=== PATIENT | male | born 1925 | race Caucasian/White ===

== ENCOUNTER 2016-11-27 07:36 | Day surgery (SDC) | payer MEDICARE, OTHER ==
[2016-11-27] VITALS (11 sets, daily range): BP systolic 97–182; BP diastolic 37–65; PULSE 59–69; RESP 13–18; O2SAT 94–98
[~2016-11-27] VITALS: Ht 182.9 cm; Wt 112.6 kg
[~2016-11-27 07:36] MED LIST: ALLO300T2 PO; ASCO-294 PO; BUPR100T15 PO; CITA20TA11 PO; CYAN500 PO; DOCU250C2 PO; Dexamethasone 4 mg/mL Inj IVPUSH PRN; EPHEDrine Sulfate 50 mg/mL Inj IVPUSH PRN; FRSM80T PO; GABA-502 PO; HYDROmorphone 1 mg/mL Inj IVPUSH PRN; LOVA40TA PO; Labetalol 5 mg/mL 4 mL Inj IV PRN; Lactated Ringer's 1,000 ML IV SCH; Lactated Ringer's 500 ML IV PRN; MetoCLOpramide 5 mg/mL 2 mL Inj IVPUSH PRN; OXYC5TAB72 PO; Ondansetron 2 mg/mL 2 mL Inj IVPUSH PRN; PANT40TA3 PO; POTA10TA12 PO; Phenylephrine 10,000 mCg/mL Inj IVPUSH PRN; TAMS0.4C98 PO; fentaNYL-PF 50 mCg/mL 2 mL Inj IVPUSH PRN
[2016-11-27] MEDS ORDERED: Ketamine 10 mg/mL 20 mL Inj ONE (07:37)
[2016-11-27] MEDS ORDERED: Propofol 10,000 mCg/mL 20 mL Inj ONE (07:37)
[2016-11-27] MEDS ORDERED: CeFAZolin Inj 2 gm / 50mL D5W IV ONE (08:15)
[2016-11-27] MEDS: Lactated Ringer's 1,000 ML IV SCH ×3 (08:19→09:44)
[2016-11-27] MEDS ORDERED: Belladonna Alk-Opium 60 mg Rectal Suppository RECTAL ONE (09:38)
[2016-11-27] MEDS: CeFAZolin 2 Gm/50 mL D5W IV Premix IV ONE ×3 (09:42→09:57)
--- NOTE | 2016-11-27 10:04 | PCM.ANEP1 ---
Post Anesthesia Phase 1 PACU Phase 1 Assessment Date of Service: Nov 27, 2016 Vital Signs Vital Signs Date Time Temp Pulse Resp B/P Pulse Ox O2 Delivery O2 Flow Rate FiO2 11/27/16 08:14 36.2 63 16 182/65 97 Room Air Anesthetic Administered: GA Level of Alertness: Awake, talking Pain: No Nausea or Vomiting: No Oxygen Delivery: Room Air Lungs: Clear to Auscultation, Normal Air Movement Jimbo Redman MD Nov 27, 2016 10:04
--- NOTE | 2016-11-27 10:04 | PCM.HPANE ---
Patient Data Date of Service: Nov 27, 2016 Surgeon Admitting Provider: Attending Provider:Nayeli Courtney MD Primary Care Physician:Marsha Taylor MD Other Provider:Liborio Hines Anesthesia Reason for Visit Bladder Tumor Ht/WT & BMI Height (Feet): 6 Height (Inches): 0.00 Weight (Kilograms): 112.600 Body Mass Index 33.00 Allergies Coded Allergies: Sulfa (Sulfonamide Antibiotics) (Verified Allergy, Unknown, Rash, 06/25/15) Past Anesthesia History Anesthesia History: Denies:: Abnormal Airway, Anesthesia Reactions, Difficult Intubation, Fam Anesthesia Reaction, Fam Malignant Hypertherm, Malignant Hyperthermia Diabetes History Hx Diabetes?: No Current Bedside Blood Glucose: 124 MRSA MRSA: Yes Medications Hypertension Medication: Yes Home Meds Incl Beta Ese: No Reported Medications Ascorbate Calcium (Vitamin C)500 Mg Fglrsn614 Mg PO DAILY 11/25/16 Cyanocobalamin (Vitamin B12)500 Mcg Tablet1,000 Mcg PO DAILY 11/25/16 Tamsulosin (Flomax)0.4 Mg Capsule0.8 Mg PO DAILY Ref 0 11/25/16 Potassium Chloride ER 10 Meq Hfmtmt99 Meq PO DAILY Ref 0 TAKE WITH FOOD 11/25/[address] 40 Mg Tablet.dr40 Mg PO DAILY Ref 0 11/25/16 oxyCODONE 5 Mg Tablet5 Mg PO Q6H PRN For Pain Ref 0 11/25/16 Lovastatin 40 Mg Nypkjl43 Mg PO HS #30 TABLET Ref 0 11/25/16 Gabapentin 300 Mg Mfojrya669 Mg PO TID Ref 0 11/25/16 Furosemide 80 Mg Tab80 Mg PO DAILY 30 Days Ref 0 11/25/16 Docusate Sodium 250 Mg Ilziihz136 Mg PO DAILY PRN For Constipation Ref 0 11/25/16 Citalopram 20 Mg Ovyyny38 Mg PO DAILY Ref 0 11/25/16 Bupropion 100 Mg Txztkn757 Mg PO TID Ref 0 11/25/16 Allopurinol 300 Mg Jfguex821 Mg PO DAILY Ref 0 11/25/16 Discontinued Reported Medications Cholecalciferol (Vitamin D3) (Vitamin D3)1,000 Unit Tab.chew1,000 Unit PO DAILY 06/20/15 Ascorbic Acid (Vitamin C)500 Mg/5 Ml Vczgt002 Mg PO DAILY 06/20/15 Cyanocobalamin (Vitamin B12)500 Mcg Tablet1,000 Mcg PO DAILY 06/20/15 Tramadol 50 Mg Ifnfhh56 Mg PO Q6H PRN For Pain Ref 0 06/20/15 Tamsulosin (Flomax)0.4 Mg Capsule0.4 Mg PO DAILY Ref 0 06/20/15 Potassium Chloride 10 Meq Capsule.er10 Meq PO DAILY 30 Days Ref 0 TAKE WITH FOOD 06/20/[address] 40 Mg Tablet.dr40 Mg PO DAILY Ref 0 06/20/15 oxyCODONE 5 Mg Capsule5 Mg PO Q4H PRN For Pain Ref 0 06/20/15 Lovastatin 40 Mg Prwiak81 Mg PO HS #30 TABLET Ref 0 06/20/15 Gabapentin 300 Mg Zrtsbcf908 Mg PO TID Ref 0 06/20/15 Furosemide 80 Mg Tab80 Mg PO DAILY 30 Days Ref 0 06/20/15 Ferrous Sulfate 325 Mg Tablet.dr325 Mg PO DAILY 30 Days Ref 0 06/20/15 Docusate Calcium (Stool Softener)240 Mg Puzodpa281 Mg PO DAILY 06/20/15 Citalopram 20 Mg Wgfmyr73 Mg PO DAILY Ref 0 06/20/15 Bupropion 100 Mg Wsruyf798 Mg PO TID Ref 0 06/20/15 Allopurinol 300 Mg Idsypp066 Mg PO DAILY Ref 0 06/20/15 History History of ENT Problems?: Yes HEENT History: Positive for:: Cataracts (bilateral cataracts) Hearing Problem Denies:: Abnormal Airway Difficult Intubation Dysphagia Sinus Problem Denture Type: Partial- Upper Hx of Heart Problems?: Yes Cardiovascular History: Positive for:: Cardiac Surgery (hx of heart cath- no intervention) Edema Hypertension Peripheral Vascular (hx of bilateral femoral artery stents, PVD) Denies:: AICD Atrial Fibrillation Chest Pain Congestive Heart Failure Heart Murmur Irregular Heartbeat Pacemaker Thrombophlebitis Valvular Heart Disease (echo 2009- ef 65-70%) Hx of Respiratory Problem?: Yes Respiratory History: Positive for:: Dyspnea Denies:: Asthma COPD Chest Surgery Emphysema (smoker for 40 years) Hemoptysis Oxygen Administration Pneumonia Tuberculosis Use of C-PAP Machine Hx Neurologic Problems?: No Neurological History: Denies:: Alzheimer's Disease CVA Dementia Dizziness Headaches Parkinson's Disease Seizures Hx of GI Problems?: Yes Gastrointestinal History: Positive for:: Diverticulitis Gall Bladder Disease (removed) Gastroesphageal Reflux (chronic gastritis, ) Gastrointestinal Bleeding (2012) Heartburn Denies:: Cirrhosis Hepatitis Hiatal Hernia Rectal Bleeding Hx of Problems?: Yes Genitourinary History: Denies:: HX of Hemodialysis (CKD stage III) Kidney Stones Urinary Tract Infection HX of Peritoneal Dialysis: No Other Pertinent History: bladder tumor current admission problem Male Hx: Positive for:: Prostate Problems (hx prostate ca/ seed implantation) Denies:: Scrotal Mass Testicular Surgery Skin History: Positive for:: History Skin Disorders? Denies:: Pressure Ulcers Hx Musculoskeletal Problems?: Yes Musculoskeletal History: Positive for:: Back Injury (spinal stenosis) Denies:: Joint Replacement Musculoskeletal Trauma Hx of Psycho/Social Problems?: Yes Psycho Social History: Positive for:: Bipolar Disorder Hx Depression Denies:: Anxiety Suicide Attempt Hx Surgeries?: Yes (gallbladder, appy, cataracts) Hx Any Other Health Problems?: Yes Other History: Positive for:: Cancer (Bladder, prostate, basal cell carcinoma) Hospitalization Denies:: Endocrine Disease Thyroid Disease History Blood Transfusions: Denies:: Blood Transfuse Reaction Blood Transfusions Hx Diabetes: NoBedside Blood Glucose: 124 Hx Alcohol Use: YesAlcoholic Drinks Per Day: 1-2 weeklyHx Substance Use: No Smoking Status: Former Smoker Have You Smoked inLast 12 mo: No Stop/Bang S-Snoring: Do You Snore Loudly: Yes T-Tired: feel tired, fatigued: Yes O-Obsered: Observed not breath: No P-Blood Pressure: treated: No B- Body Mass Index > 35 kg/m2: No A- Age over 50: Yes N- Neck Large Circumference: No G- Gender Male: Yes TONY Total Score: 4 TONY Risk Assessment: High Risk, =/>3 Yes Risk Assessment Category Category 1A: Patient has history of documented sleep apnea, and HAS NOT received any narcotic, sedative or anesthesia administration during this stay. Category 1B: Patient has history of documented sleep apnea, and HAS received any narcotic , sedative or anesthesia administration during this stay Category 2: Patient has SUSPECTED Obstructive Sleep Apnea, and HAS received any narcotic , sedative or anesthesia administration during this stay. Category 3: Patient has SUSPECTED Obstructive Sleep Apnea and HAS NOT received narcotic, sedative or anesthesia administration during this stay. Category 4: Outpatient in Procedural Areas with known sleep apnea or who screen positive for High Risk via the STOP/BANG questionnaire. Exam Exam Vital Signs Vital Signs Date Time Temp Pulse Resp B/P Pulse Ox O2 Delivery O2 Flow Rate FiO2 11/27/16 08:14 36.2 63 16 182/65 97 Room Air General Appearance: Alert, Oriented X3, Cooperative, No Acute Distress HEENT/AIRWAY: MP 2 Lungs: Clear to Auscultation, Normal Air Movement Heart: Exam Unremarkable, Regular Rate/Rhythm, No Murmurs/Rubs/Gallops Meds/Labs/Diagnostics Admission Meds Current Medications Lactated Ringer's 1,000 ml @ 120 mls/hr Q8H20M IV Last administered on 09:44; Start 11/27/16 at 05:00; Stop 11/27/16 at 13:19 Cefazolin Sodium/ Dextrose/Premix (Ancef Inj/IV Premix) 50 ml @ 100 mls/hr PREOP ONCE IV Last administered on 11/27/16 09:44; Start 11/27/16 at 06:00; Stop 11/27/16 at 06:29; Status DC Belladonna Alkaloids/Opium (B & O Rectal Suppository) 60 mg STK-MED ONCE RECTAL Last administered on 11/27/16 09:42; Start 11/27/16 at 09:38; Stop 11/27/16 at 09:39; Status DC Bedside Blood Glucose: 124 Plan Impression Patient chart reviewed, patient interviewed and anesthestic plan with risks, benefits, and alternatives discussed, and informed consent obtained. NPO Status: 0600 water with meds ASA Physical Status: ASA2 Mod Systemic Disease Anesthetic Plan: GA Bene/Risks/Altern/Consents: Yes HP Complete Prior to Induction: Yes Jimbo Redman MD Nov 27, 2016 10:04
--- NOTE | 2016-11-27 10:05 | PCM.ANEP2 ---
Post Anesthesia Evaluation ASA/CMS Post Anesthesia VS in Patient's Normal Range?: Yes Resp Stable; Airway Patent?: Yes CV Function & Hydration Stable: Yes Mental Status Recovered?: Yes Pain control Satisfactory?: Yes N/V Control Satisfactory?: Yes Jimbo Redman MD Nov 27, 2016 10:05
[2016-11-27] MEDS ORDERED: HYDROcodone-APAP 5-325 mg Tablet PO PRN (10:20)
--- NOTE | 2016-11-28 00:06 | OP ---
[address] [address] OPERATIVE REPORT PATIENT: KEATON CARLOS : 1925 MR#: [id number] ADMIT: 11/27/2016 JOB ID: [id number] DATE OF SURGERY: 11/27/2016 PREOPERATIVE DIAGNOSIS(ES): Bladder cancer. POSTOPERATIVE DIAGNOSIS(ES): PROCEDURE: Cystoscopy, transurethral resection of bladder tumor. SURGEON: Nayeli Courtney MD. ANESTHESIA: General anesthetic, Dr. Redman. PROCEDURE: Under general anesthetic, patient was placed in lithotomy position. Genitalia prepped and draped in a sterile manner. A 22-[place] cystoscope was introduced through a normal urethra. Located on the left side wall of the bladder was a 1 x 2 cm bladder tumor. Using the cup biopsy forceps three biopsies were taken. A 26-[place]ank[place] resectoscope was then inserted into the bladder, the remainder of the tumor was resected and the base cauterized. The patient tolerated the procedure well. Estimated blood loss negligible. The patient left the operating room in good condition under light anesthesia. A B and O suppository was given for postoperative analgesia.
--- NOTE | 2016-11-28 11:50 | PATH ---
SURGICAL PATHOLOGY Attending Physician:Nayeli Courtney MD () CASE STATUS: Signed Out PATIENT NAME: KEATON CARLOS PID: [id number] : 1925 DATE COLLECTED:11/27/2016 20:19 SPECIMEN: Bladder, Biopsy CLINICAL HISTORY: LEFT WALL BLADDER TUMOR 1). 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 NEGATIVE FOR EVIDENCE OF INVASION OF LAMINA PROPRIA. NEGATIVE FOR EVIDENCE OF INVASION OF MUSCULARIS PROPRIA. ICD10 CODE C67.2 NOTE: As part of a routine it quality assurance analyst, Dr. Amie Pelaez has also reviewed this case and agrees with the diagnosis. GROSS DESCRIPTION: The specimen is received in one formalin filled container labeled with the patient's name, sublabeled "left wall bladder tumor" and consists of 3 portions of tissue which aggregate to 0.7x 0.6 x 0.6 CM. The specimen is entirely submitted in one cassette. 11/27/2016 DAC MICRO DESCRIPTION: See diagnosis. ICD-9 CODES: CPT CODES: 97286 Electronically Signed Out Eddie Fraire MD [facility] Pathology [facility] [address], [place] [address] Technical component performed at [facility], [address] [place] [address] [address], [place], [address]
== END 2016-11-27 23:59 | disposition home or self-care (01) ==
LOC: SAS 07:36
PROVIDERS: ATTEND Urology
DX: C67.2 Malignant neoplasm of lateral wall of bladder (principal); N40.0 Benign prostatic hyperplasia without lower urinary tract symptoms; E11.40 Type 2 diabetes mellitus with diabetic neuropathy, unspecified; I12.9 Hypertensive chronic kidney disease with stage 1 through stage 4 chronic kidney disease, or unspecified chronic kidney disease; F32.9 Major depressive disorder, single episode, unspecified; E78.5 Hyperlipidemia, unspecified; I73.9 Peripheral vascular disease, unspecified; I25.10 Atherosclerotic heart disease of native coronary artery without angina pectoris; N18.9 Chronic kidney disease, unspecified; D63.1 Anemia in chronic kidney disease; J84.9 Interstitial pulmonary disease, unspecified; K21.0 Gastro-esophageal reflux disease with esophagitis; M10.9 Gout, unspecified